=== PATIENT | female | born 1965 | race Caucasian/White ===

== ENCOUNTER 2022-04-09 11:42 | Emergency (ER) | payer OTHER, SELFPAY ==
[2022-04-09 11:45] VITALS: BP 150/73; PULSE 94; RESP 14; TEMP 36.6; O2SAT 100; BMI 23.3
--- NOTE | 2022-04-09 12:09 | EKG12_ITS ---
Test Reason : CP Blood Pressure : / mmHG Vent. Rate : 087 BPM Atrial Rate : 087 BPM P-R Int : 132 ms QRS Dur : 090 ms QT Int : 368 ms P-R-T Axes : 029 066 066 degrees QTc Int : 442 ms Normal sinus rhythm Normal ECG Confirmed by ANTONINO EVANS, ANTON ([id number]), loan expeditor WALLACE ELAINE ([id number]) on 04/10/2022 1:18:17 PM Referred By: MARKUS Confirmed By:ANTON MUÑIZ MD
[2022-04-09 12:35] LABS: Absolute Lymphocyte Count 1.29 X10^3/uL (0.83-4.51); Absolute Neutrophil Count 5.8 X10^3/uL (2.0-7.7); Basophil# 0.03 X10^3/uL; Basophil% 0.4 % (0-1); Eosinophil# 0.02 X10^3/uL; Eosinophils% 0.3 % (0-5); Hematocrit 39.9 % (37-47); Hemoglobin 13.5 g/dL (12.0-15.0); Lymphocyte # 1.29 X10^3/ul (0.83-4.51); Lymphocyte % 17.2 % (19-41); Mean Corp Hgb Conc 33.8 g/dL (32-36); Mean Corpuscular Hgb 30.1 pg (27.0-32.0); Mean Corpuscular Volume 89.1 fL (81-99); Mean Platelet Vol. 9.4 fl (6.2-12.0); Monocyte# 0.35 X10^3/uL; Monocyte% 4.7 % (0-10); NRBC Flagged by Analyzer 0 % (0-5); Neutrophil # 5.79 X10^3/uL (2.7-7.7); Neutrophil % 76.9 % (47-70); Platelet Count 382 K/mm3 (150-450); RBC Distribution Width CV 12.6 % (11.6-14.6); RBC Distribution Width SD 41.3 fl (35.1-43.9); Red Blood Count 4.48 M/mm3 (4.2-5.4); White Blood Count 7.5 K/mm3 (4.4-11.0)
[2022-04-09 12:44] VITALS: BP 139/79; PULSE 101; RESP 13
[2022-04-09 12:53] LABS: D-Dimer Quantitative (DVT/PE) < 0.27 FEU/ug/m (0.27-0.49)
[2022-04-09 12:59] LABS: ALB/GLOB Ratio 1.5 RATIO (0.9-2.4); AST(SGOT) 16 U/L (15-37); Alanine Aminotransfer ALT/SGPT 24 U/L (13-56); Albumin, Serum 4.5 g/dL (3.2-5.0); Alkaline Phosphatase 84 U/L (45-117); Anion Gap 7 (5-15); BUN 11 mg/dL (7-18); BUN/Creat Ratio 13.5 RATIO (10-20); Calcium,Total 9.3 mg/dL (8.5-10.1); Chloride 108 mmol/L (98-107); Creatinine, Serum 0.82 mg/dL (0.55-1.02); EST Glomerular Filtration Rate 77 mL/min (>60); Est Glom Filt Rate - Afr Amer 93 mL/min (>60); Estimated Creatinine Clearance 66.94 ml/min; Globulin 3.1 g/dL (2.2-4.2); Glucose 114 mg/dL (74-106); Potassium 3.3 mmol/L (3.5-5.1); Protein, Total 7.6 g/dL (6.4-8.2); Sodium Level 142 mmol/L (136-145); Thyroid Stim Hormone (TSH) 1.69 uIU/mL (0.358-3.74); Troponin-I HS 4 pg/mL (3.0-54.0)
[2022-04-09 14:00] VITALS: BP 136/76; PULSE 106; RESP 16; O2SAT 99
--- NOTE | 2022-04-09 14:01 | EDS_ITS ---
HPI History of Present Illness Chief Complaint: Chest Pain Narrative Narrative: Patient presents with 3-day history of tachycardia, she feels her heart racing, this happens at rest sometimes and sometimes during exertion. She has no chest pain or pleuritic component. She has no fevers or chills. No cough or congestion. She has no back pain or tearing sensation. She has no lower extremity edema or calf pain. No DVT or PE risk factors. No recent fevers or chills PFSH PFSH Medical History Hypothyroid Home Medications levothyroxine 04/09/22 [History Last Taken Unknown] methylphenidate 04/09/22 [History Last Taken Unknown] metoprolol tartrate 25 mg PO BID #30 tab 04/09/22 [Rx Last Taken Unknown] Allergy/AdvReac Type Severity Reaction Status Date / Time No Known Allergies Allergy Verified 04/09/22 11:51 Surgical History H/O mastectomy Social History Smoking Status: Never smoker ROS ROS ED ROS Narrative Past medical history: Reviewed Medications: Reviewed Social history: Noncontributory Review of systems: All systems negative except as indicated General: No fever Eyes: No visual changes ENT: No upper airway congestion, normal voice Neck: No neck pain Cardiovascular: No chest pain. Some palpitations and lightheadedness as in HPI Respiratory: No shortness of breath or cough Gastrointestinal: No abdominal pain, nausea vomiting or diarrhea Genitourinary: No dysuria Musculoskeletal: Denies myalgias no difficulty with ambulation Skin: No rash Neurological: No memory loss, confusion or any focal weakness Psych: No recent behavioral changes Hematologic: No easy bleeding or easy bruising EXAM Physical Exam Narrative Exam Narrative: Physical exam General: Well nourished, Well developed, No Acute Distress Head: Normocephalic, Atraumatic Eyes: Conjunctiva not pale ENT: Moist mucous membranes Neck: Supple, Nontender, No lymphadenopathy Cardiovascular: Regular rate, Regular rhythm Respiratory: No distress, CTA bilaterally Abdomen: Soft, Nontender, Nondistended Back: Nontender, Normal Inspection. Negative for: CVA tenderness Extremities: Nontender, No edema Skin: Normal color, No rash Neurological: Alert, Normal Strength, Normal Sensation Psychological: Normal affect Const Vital Signs: 04/09/22 11:45 04/09/22 12:27 04/09/22 12:44 Temperature 97.9 F Temperature Source Temporal Pulse Rate 94 101 H Respiratory Rate 14 13 Respiratory Effort Normal Blood Pressure 150/73 H 139/79 H Blood Pressure Mean 98 99 Pulse Ox 100 Oxygen Delivery Method Room Air MDM MDM MDM Narrative Medical decision making narrative: Patient has a normal work-up including a normal EKG. There are times when her heart rate goes into the 120s but this is sinus tachycardia and it quickly resolves. Usually at rest she is in the 80s and sinus. No evidence of SVT or A. fib or a flutter. I will place her on a Holter monitor I will place her on a low-dose beta-blockers and she can follow- up with cardiology. Otherwise she is stable. Lab Data Labs: Laboratory Results - last 24 hr 04/09/22 04/09/22 04/09/22 12:20 12:20 12:20 WBC 7.5 RBC 4.48 Hgb 13.5 Hct 39.9 MCV 89.1 MCH 30.1 MCHC 33.8 RDW Std Deviation 41.3 RDW Coeff of Maykel 12.6 Plt Count 382 MPV 9.4 Immature Gran % (Auto) 0.500 Neut % (Auto) 76.9 H Lymph % (Auto) 17.2 L [place] % (Auto) 4.7 Eos % (Auto) 0.3 Baso % (Auto) 0.4 Absolute Neuts (auto) 5.8 Absolute Lymphs (auto) 1.29 Nucleated RBC % 0 D-Dimer Quant (PE/DVT) < 0.27 L Sodium 142 Potassium 3.3 L Chloride 108 H Carbon Dioxide 27.0 Anion Gap 7 BUN 11 Creatinine 0.82 Estim Creat Clear Calc 66.94 Est GFR (MDRD) Af Amer 93 Est GFR (MDRD) Non-Af 77 BUN/Creatinine Ratio 13.5 Glucose 114 H Calcium 9.3 Total Bilirubin 0.50 AST 16 ALT 24 Alkaline Phosphatase 84 Troponin I High Sens 4 Total Protein 7.6 Albumin 4.5 Globulin 3.1 Albumin/Globulin Ratio 1.5 TSH 1.69 EKG Initial EKG: Comments: Sinus rhythm with a rate of 87. Normal NM and QTc intervals. No ischemic changes. Normal EKG otherwise Interpreted by emergency doctor Discharge Plan Triage Chief Complaint: Chest Pain ED Provider: Inder Martel Dx/Rx/DC Orders Clinical Impression: Palpitations, Tachycardia Instructions: ED Palpitations Prescriptions: New metoprolol tartrate 25 mg tablet 25 mg PO BID Qty: 30 RF: 0 No Action levothyroxine RF: 0 methylphenidate RF: 0 Primary Care Provider: Billie Thomas Referrals: Damir Russ MD [STAFF PHYSICIAN] - 3-5 Days Billie Thomas MD [Primary Care Provider] - Disposition Disposition: Home, Self Care
[2022-04-09] MEDS: Metoprolol Tartrate 25 MG Tablet PO (14:48)
[2022-04-09 14:53] VITALS: BP 144/89; PULSE 97; RESP 16; O2SAT 97
== END 2022-04-09 14:54 | disposition home or self-care (01) ==
PROVIDERS: Emergency Provider Emergency Medicine; PCP Family Medicine; Visit Provider Emergency Medicine
DX: R00.2 Palpitations (principal); R00.0 Tachycardia, unspecified
CPT/HCPCS: 80053; 84443; 84484; 85025; 85379; 93005; 93225; 93226; 99285; A4216